=== PATIENT | male | born 1970 | race American Indian/Alaskan Native ===

== ENCOUNTER 2017-08-25 10:00 | Inpatient (IN) | payer MEDICAID ==
--- NOTE | 2017-08-25 10:50 | C.PDOC ---
History Of Present Illness 47 y/o male presents to ED requesting detox from heroin and cocaine. Patient reports last use was last night and currently denies SI/HI, hallucinations or any other physical complaint at this time. Time Seen by Provider: 08/25/17 10:18 Chief Complaint (Nursing): Substance Abuse History Per: Patient History/Exam Limitations: no limitations Onset/Duration Of Symptoms: Days Current Symptoms Are (Timing): Still Present Suicide/Self Injury Attempted (Context): None Modifying Factor(s): Cocaine, Other (heroin) Past Medical History Reviewed: Historical Data, Nursing Documentation, Vital Signs Vital Signs: Last Vital Signs Temp 98.5 F 08/25/17 10:13 Pulse 84 08/25/17 10:13 Resp 18 08/25/17 10:13 BP 131/85 08/25/17 10:13 Pulse Ox 98 08/25/17 12:51 - Medical History PMH: Asthma Surgical History: No Surg Hx Family History: States: No Known Family Hx - Social History Hx Alcohol Use: Yes Hx Substance Use: Yes Review Of Systems Constitutional: Negative for: Fever, Chills Cardiovascular: Negative for: Chest Pain Respiratory: Negative for: Shortness of Breath Gastrointestinal: Negative for: Nausea, Vomiting Skin: Negative for: Rash Psych: Negative for: Suicidal ideation, Withdrawal Physical Exam - Physical Exam Appears: Non-toxic, No Acute Distress Skin: Warm, Dry, No Rash Head: Atraumatic, Normacephalic Eye(s): bilateral: Normal Inspection Oral Mucosa: Moist Neck: Normal ROM, Supple Cardiovascular: Rhythm Regular Respiratory: Normal Breath Sounds, No Rales, No Rhonchi, No Wheezing Gastrointestinal/Abdominal: Soft, No Tenderness, No Guarding, No Rebound Extremity: Normal ROM, Capillary Refill (<2 seconds) Neurological/Psych: Oriented x3, Normal Speech, Normal Cognition ED Course And Treatment - Laboratory Results Result Diagrams: 08/25/17 11:11 08/25/17 11:11 O2 Sat by Pulse Oximetry: 98 (RA) Pulse Ox Interpretation: Normal Medical Decision Making Medical Decision Making: Pending medical clearance for detox admission The patient is medically cleared for detox admission. Disposition - Disposition Disposition: HOSPITALIZED Disposition Time: 12:52 Condition: GOOD Forms: [facility] (Macedonian) - POA Present On Arrival: None - Clinical Impression Clinical Impression: Opiate dependence - PA / FRAME RUNNER / Resident Statement / has reviewed & agrees with the documentation as recorded. - Scribe Statement The provider has reviewed the documentation as recorded by the Lindseyibkarin Ontiveros All medical record entries made by the Jing were at my direction and personally dictated by me. I have reviewed the chart and agree that the record accurately reflects my personal performance of the history, physical exam, medical decision making, and the department course for this patient. I have also personally directed, reviewed, and agree with the discharge instructions and disposition.
[2017-08-25 11:16] LABS: BASO % 0.6 % (0.0-2.0); EOS % 0.9 % (0.0-4.0); HEMOGLOBIN 13.5 g/dL (12.0-18.0); LYMPH # 1.7 K/uL (1.0-4.3); LYMPH % 70.7 % (20.0-40.0); MEAN CELL VOLUME 82.2 fL (80.0-94.0); MEAN CORPUSCULAR HGB CONC 34.1 g/dL (33.0-37.0); MEAN PLATELET VOLUME 6.9 fL (7.2-11.7); MONO # 0.4 K/uL (0.0-0.8); MONO % 18.4 % (0.0-10.0); NEUT # 0.2 K/uL (1.8-7.0); NEUT % 9.4 % (50.0-75.0); NRBC % 0.6 % (0.0-2.0); PLATELET COUNT 318 K/uL (130-400); RED CELL DISTRIBUTION WIDTH 14.8 % (11.5-14.5); WHITE BLOOD COUNT 2.4 K/uL (4.8-10.8)
[2017-08-25 11:28] LABS: URINE BILIRUBIN NEGATIVE (NEGATIVE); URINE BLOOD NEGATIVE (NEGATIVE); URINE CLARITY Hazy (Clear); URINE COLOR Amber (YELLOW); URINE GLUCOSE (UA) NORMAL (Normal); URINE LEUKOCYTE ESTERASE NEG Leu/uL (Negative); URINE PROTEIN 1+ mg/dL (NEGATIVE)
[2017-08-25 11:29] LABS: ALBUMIN 4.3 g/dL (3.5-5.0); ALT/SGPT 23 U/L (21-72); AST/SGOT 23 U/L (17-59); BLOOD UREA NITROGEN 13 mg/dL (9-20); GFR AFRICAN-AMERICAN > 60; GFR NON-AFRICAN AMERICAN > 60
[2017-08-25 11:50] LABS: EOSINOPHIL 2 % (0-4); LYMPHOCYTE 74 % (20-40); MONOCYTE 17 % (0-10); NEUTROPHIL 7 % (50-75); TOTAL CELLS COUNTED 100
[2017-08-25 11:51] LABS: PLATELET ESTIMATE NORMAL (NORMAL)
[2017-08-25 12:02] LABS: BARBITURATES, UR NEGATIVE (NEGATIVE); BENZODIAZEPINES, UR NEGATIVE (NEGATIVE)
[2017-08-25 12:18] LABS: PHENCYCLIDINE, UR NEGATIVE (NEGATIVE)
[2017-08-25 12:35] LABS: OPIATES, UR POSITIVE (NEGATIVE)
--- NOTE | 2017-08-25 13:59 | PCM.BM ---
<Katie Villanueva - Last Filed: 08/25/17 13:58> Treatment Plan Problems - Problems identified on initial assessmt potential for opiate withdrawals Date Initiated: 08/25/17 Assessment reference: NA Status: Active Treatment assets and liabiliti Patient Assests: adapts well, cooperative, motivated, ADL independent, negotiates basic needs Patient Liabilities: substance abuse - Milieu Protocol Maintain good personal hygiene: daily Encourage regular showers, daily Remind patient to perform daily oral care, daily Assist patient to perform ADL's Conduct patient checks and document Observation sheet: Q15 minutes Maintain personal safety: every shift Educate patient to report safety concerns to staff, every shift Monitor environment for contraband/sharps Medication safety: Monitor for expected outcome, potential side effects: every shift, Assess barriers to learning: every shift, Assess readiness for medication education: every shift <Jean-Paul Queen - Last Filed: 08/25/17 14:53> - Diagnosis (1) Opiate dependence Status: Acute Interventions: 08/25/17 14:53 * Assess 7x/week regarding severity of withdrawal * Educate regarding risks, benefits, side effects and alternatives of medications * Use Motivational Interviewing for abstinence * Use CBT for relapse prevention * Medication management for withdrawal symptoms * Encourage medication assisted treatment * (2) Cocaine use disorder, severe, dependence Status: Acute Interventions: 08/25/17 14:53 * * Educate regarding risks, benefits, side effects and alternatives of medications * Use Motivational Interviewing for abstinence * Use CBT for relapse prevention * Medication management for withdrawal symptoms * Encourage medication assisted treatment * <Kristy Parra - Last Filed: 08/27/17 10:59> Family Contact Family involvement: Famliy/SO not involved - Goals for Treatment Patient goals for treatment: Complete detox and attend 12-step meetings Discharge/Continuing Care - Education Needs Education Needs: Patient Medication, Patient Diagnosis/Disease Process, Patient Coping Skills, Patient Anger Management skills, Patient Placement options, Patient Community resources - Discharge Discharge Criteria: Free of agitation, Normal sleep pattern, No longer exhibiting s/s of withdrawal, Reduction of target symptoms Discharge to:: Home - Treatment Team Participation Patient/Family/SO Statement: 08/27/17 10:59 "I don't wanna go to treatment after this..." Discussed with Family/SO: No Was Patient/Family/SO present at Treatment Team Meeting: Yes
[2017-08-25] MEDS ORDERED: Aluminum Hydroxide/Magnesium Hydroxide Susp (30 mL) PO PRN (14:12)
[2017-08-25] MEDS ORDERED: Albuterol HFA 90 mcg/actuation (8 g) INH PRN (14:13)
--- NOTE | 2017-08-25 14:45 | PCM.PSYCH ---
Initial Psychiatric Evaluation - Initial Psychiatric Evaluation Type of Admission: Voluntary Legal Status: Capacity Chief Complaint (in patient's own words): "I need detox' History of Present Illness and Precipitating Events: The patient is seen, chart reviewed and case discussed. This is a 47-year-old -[place] male, single with several children but who in 1990. He lives with his adult daughter and he is unemployed. The patient is here for opiate detox; using 10 bags intranasal heroin and he is also given a prescription for methadone 10 mg, 60 tablets a month. However, he states when he doesn't take heroin, he uses methadone tablets 3 or 4 a day. He also smokes 2 g of crack cocaine, 1 pack per day cigarettes. Finally, he admits to using Xanax occasionally. No withdrawal symptoms. He denies alcohol and other drugs. He feels depressed and anhedonic but denies suicidal ideation. Past psych history: He was depressed and admitted to psychiatry in 2004. He denies suicide attempts. Family psych history: Father was an "alcoholic" Medical history: Asthma, disc hernia, recent history of cellulitis for which she got treatment at [facility]. He also has some neutropenia and lymphocytosis and he says he was evaluated but they couldn't find the reason. Current Medications: Active Medications Generic Name Dose Route Start Last Admin Trade Name Clintq PRN Reason Stop Dose Admin Acetaminophen 650 mg 08/25/17 14:12 Tylenol 325mg Tab PO Q6 PRN Pain, moderate (4-7) Al Hydrox/Mg Hydrox/Simethicone 30 ml 08/25/17 14:12 Maalox 30 Ml PO TID PRN Indigestion / Heartburn Albuterol 1 puff 08/25/17 14:13 Ventolin Hfa 90 Mcg/Actuation (8 G) INH RQ4 PRN SOB Clonidine HCl 0.1 mg 08/25/17 14:12 Catapres PO Q8 PRN COWS Score More or Equal to 5 Hydroxyzine HCl 25 mg 08/25/17 14:12 Atarax PO Q4H PRN Anxiety Loperamide HCl 2 mg 08/25/17 14:12 Imodium PO Q8 PRN Diarrhea Ondansetron HCl 4 mg 08/25/17 14:12 Zofran Tab PO Q8 PRN Nausea/Vomiting Trazodone HCl 100 mg 08/25/17 14:12 Desyrel PO HS PRN Insomnia Past Psychiatric History - Past Psychiatric History Previous Treatment History: Inpatient Pertinent Medical Hx (Current Medical&Sleep Prob, Allergies): Allergies Allergy/AdvReac Type Severity Reaction Status Date / Time No Known Allergies Allergy Verified 08/25/17 10:15 Albuterol Sulfate [Ventolin Hfa] 2 puff IH PRN PRN 08/25/17 Review of Systems - Neurological Neurological: UNREMARKABLE - Psychiatric Psychiatric: Abnormal Sleep Pattern, Anhedonia, Anxiety, Depression, Difficulty Concentrating. absent: Hallucinations, Homicidal Ideation, Paranoia, Suicidal Ideation Mental Status Examination - Personal Presentation Personal Presentation: Looks older than stated age - Affect Affect: Constricted - Motor Activity Motor Activity: Calm - Reliability in Providing Information Reliability in Providing Information: Good - Speech Speech: Organized - Mood Mood: Depressed, Anxious - Formal Thought Process Formal Thought Process: No Impairment - Cognitive Functions Orientation: Person, Situation Sensorium: Alert Attention/Concentration: Attentive Estimate of Intelligence: Average Judgement: Intact, as evidence by: Insight regarding need for hospitalization Memory: Recent intact, as evidence by: Ability to recall events of the day, Remote intact, as evidenced by: Abilit to recall sig. life events - Risk Risk: Withdrawal, Diminished functioning - Strength & Assets Inventory Strength & Assets Inventory: Cooperative - Limitations Limitations: Living alone, Other DSM 5 DX - DSM 5 DSM 5 Diagnosis: Opioid withdrawal Opioid use d/o- severe Cocaine use d/o- severe Tobacco use d/o- severe Major Depressive d/o- recurrent, moderate Asthma Disc Hernia recent cellulitis - Recommended/Plan of Treatment Treatment Recommendations and Plan of Treatment: Taper with Gabapentin for augmentation lexapro for depression As needed medications All risks, benefits and alternatives of the meds discussed, and the pt agreed and understood. Attend groups and activities Supportive therapy and psychoeducation VT for abstinence CBT for relapse prevention Encourage MAT Refer to rehab or IOP, and self-help groups Smoking cessation with VT Nicotine patch Neutropenia: RPR, HiV and hep C tests TSH test CXR 34 min Projected ELOS: 5 days Prognosis: good w treatment - Smoking Cessation Smoking Cessation Initiated: Yes
--- NOTE | 2017-08-25 15:44 | RAD ---
HISTORY: Substance abuse, lymphocytosis COMPARISON: No prior. TECHNIQUE: Chest PA and lateral FINDINGS: LUNGS: No active pulmonary disease. PLEURA: No significant pleural effusion identified. No pneumothorax apparent. CARDIOVASCULAR: Normal. OSSEOUS STRUCTURES: No significant abnormalities. VISUALIZED UPPER ABDOMEN: Normal. OTHER FINDINGS: None. IMPRESSION: No active disease.
[2017-08-25 16:46] VITALS: RESP 18
[2017-08-25 18:02] LABS: HEPATITIS C ANTIBODY NEGATIVE (NEGATIVE)
--- NOTE | 2017-08-26 13:31 | PCM.PYCHPN ---
Psychiatric Progress Note - Psychiatric Progress Note Patient seen today, length of contact: 16 min Patient Chief Complaint: "I have pain" Problems Identified/Issues Discussed: The pt is seen, chart reviewed, case discussed with staff. The pt is compliant with medications and reports no side-effects. Symptoms are improving but needs more time to stabilize. After care discussed, support and psychoeducation given. He has lesions in foot, podiatry called Medication Change: Yes (detox changes daily) Medical Record Reviewed: Yes Mental Status Examination - Cognitive Function Orientation: Person, Place, Situation, Time Memory: Intact Attention: WNL Concentration: Poor Association: WNL Fund of Knowledge: WNL - Mood Mood: Depressed, Anxious - Affect Affect: Constricted - Speech Speech: Appropriate - Formal Thought Process Formal Thought Process: No Impairment - Suicidal Ideation Suicidal Ideation: No - Homicidal Ideation Homicidal Ideation: No Goal/Treatment Plan - Goal/Treatment Plan Need for Continued Stay: Discharge may exacerbated symptoms, Severe functional impairment Progress Toward Problem(s) and Goals/Treatment Plan: Taper with Gabapentin for augmentation lexapro for depression As needed medications All risks, benefits and alternatives of the meds discussed, and the pt agreed and understood. Attend groups and activities Supportive therapy and psychoeducation MD for abstinence CBT for relapse prevention Encourage MAT Refer to rehab or IOP, and self-help groups Smoking cessation with MD Nicotine patch Neutropenia: RPR, HiV and hep C tests - all negative TSH test - normal CXR - normal
--- NOTE | 2017-08-27 10:56 | PCM.PYCHPN ---
Psychiatric Progress Note - Psychiatric Progress Note Patient seen today, length of contact: 16 min Patient Chief Complaint: "I have pain" Problems Identified/Issues Discussed: The pt is seen, chart reviewed, case discussed with staff. Support and psychoeducation given, CBT and NC used briefly No new symptoms reported, improving slowly and needs more time No SEs from medications, risks discussed. After care discussed Medication Change: Yes (detox changes daily) Medical Record Reviewed: Yes Mental Status Examination - Cognitive Function Orientation: Person, Place, Situation, Time Memory: Intact Attention: WNL Concentration: Poor Association: WNL Fund of Knowledge: WNL - Mood Mood: Depressed, Anxious - Affect Affect: Constricted - Speech Speech: Appropriate - Formal Thought Process Formal Thought Process: No Impairment - Suicidal Ideation Suicidal Ideation: No - Homicidal Ideation Homicidal Ideation: No Goal/Treatment Plan - Goal/Treatment Plan Need for Continued Stay: Discharge may exacerbated symptoms, Severe functional impairment Progress Toward Problem(s) and Goals/Treatment Plan: Taper with Gabapentin for augmentation lexapro for depression As needed medications All risks, benefits and alternatives of the meds discussed, and the pt agreed and understood. Attend groups and activities Supportive therapy and psychoeducation NC for abstinence CBT for relapse prevention Encourage MAT Refer to rehab or IOP, and self-help groups Smoking cessation with NC Nicotine patch Neutropenia: RPR, HiV and hep C tests - all negative TSH test - normal CXR - normal
[2017-08-27 11:11] VITALS: BP 113/68; PULSE 71; TEMP 98.1; O2SAT 100
--- NOTE | 2017-08-27 13:00 | CP.PCM.CON ---
History of Present Illness - History of Present Illness History of Present Illness: Podiatry Consult note for dr. Salmeron 47 yo male patient with PMHx of Asthma and Substance Abuse was seen at bedside this morning after request for podiatry consultation. Patient presents with painful bilateral feet at the level of 1st MTPJ right more than Left. Patient states that he noticed swelling first roughly a week ago followed by sharp pain. Patient denies of any trauma. Patient denies of history of gout in the past, and states this is first time having such pain to his feet. Patient denies of trying any medication for the pain. Patient denies of any N/V/F/C or SOB today Review of Systems - Constitutional Constitutional: As Per HPI Past Patient History - Past Social History Smoking Status: Heavy Smoker > 10 Cigarettes Daily - CARDIAC Hx Cardiac Disorders: No Hx Hypertension: No - PULMONARY Hx Asthma: Yes - NEUROLOGICAL HX Cerebrovascular Accident: No - HEMATOLOGICAL/ONCOLOGICAL Hx Cancer: No Hx Human Immunodeficiency Virus (HIV): No - INTEGUMENTARY Hx Dermatological Problems: Yes Hx Cellulitis: Yes (BLE) - MUSCULOSKELETAL/RHEUMATOLOGICAL Hx Falls: Yes (5 days ago) - GENITOURINARY/GYNECOLOGICAL Hx Sexually Transmitted Disorders: No - PSYCHIATRIC Hx Substance Use: Yes - SURGICAL HISTORY Hx Surgeries: No - ANESTHESIA Hx Anesthesia: No Hx Anesthesia Reactions: No Meds Allergies/Adverse Reactions: Allergies Allergy/AdvReac Type Severity Reaction Status Date / Time No Known Allergies Allergy Verified 08/25/17 10:15 - Medications Medications: Current Medications Acetaminophen (Tylenol 325mg Tab) 650 mg PO Q6 PRN PRN Reason: Pain, moderate (4-7) Al Hydrox/Mg Hydrox/Simethicone (Maalox 30 Ml) 30 ml PO TID PRN PRN Reason: Indigestion / Heartburn Albuterol (Ventolin Hfa 90 Mcg/Actuation (8 G)) 1 puff INH RQ4 PRN PRN Reason: SOB Clonidine HCl (Catapres) 0.1 mg PO Q8 PRN PRN Reason: COWS Score More or Equal to 5 Hydroxyzine HCl (Atarax) 25 mg PO Q4H PRN PRN Reason: Anxiety Last Admin: 08/26/17 21:40 Dose: 25 mg Loperamide HCl (Imodium) 2 mg PO Q8 PRN PRN Reason: Diarrhea Methadone HCl (Methadone) 20 mg PO Q24H BENIGNO PRN Reason: Taper Stop: 09/01/17 09:59 Last Admin: 08/27/17 10:33 Dose: 20 mg Nicotine (Nicoderm Cq) 1 patch TD DAILY BENIGNO Last Admin: 08/27/17 10:34 Dose: Not Given Ondansetron HCl (Zofran Tab) 4 mg PO Q8 PRN PRN Reason: Nausea/Vomiting Trazodone HCl (Desyrel) 100 mg PO HS PRN PRN Reason: Insomnia Last Admin: 08/26/17 21:40 Dose: 100 mg Physical Exam - Constitutional Appears: Well, Non-toxic, No Acute Distress - Extremities Exam Additional comments: Bilateral lower extremities exam DERM: No open wound noted. No drainage noted. No mal-odor noted. No interdigital maceration noted. No sign of acute infection noted VASC: Skin warm to touch at the level of 1st MTPJ. palpable DP noted 2/4, non- palpable PT noted bilaterally. BUSINESS PARTNER less than 3 seconds noted to all digits ORTHO: Pain on palpation to joints distal to ankle, especially 1st MTPJ bilaterally right more than left. Decreased ROM to joints distal to ankle NEURO: Gross sensation intact - Neurological Exam Neurological exam: Alert, Oriented x3 Results - Vital Signs Recent Vital Signs: Last Vital Signs Temp 98.1 F 08/27/17 11:09 Pulse 71 08/27/17 11:09 Resp 18 08/27/17 11:09 BP 113/68 08/27/17 11:09 Pulse Ox 100 08/27/17 11:09 - Labs Result Diagrams: 08/25/17 11:11 08/25/17 11:11 Assessment & Plan - Assessment and Plan (Free Text) Assessment: 47 yo male patient presents with painful bilateral feet; gout vs stress fracture Plan: Patient was seen, evaluated by bedside this AM labs and vitals reviewed discussed in detail with Dr. Salmeron Xray of bilateral feet ordered Uric Acid level ordered Podiatry will continue to follow in-house
--- NOTE | 2017-08-27 13:18 | PCM.PYCHDC ---
Mental Status Examination - Mental Status Examination Orientation: Person, Place, Situation, Time Memory: Intact Mood: Anxious Affect: Constricted Speech: Appropriate Attention: WNL Concentration: WNL Association: WNL Fund of Knowledge: WNL Formal Thought Process: No Impairment Suicidal Ideation: No Current Homicidal Ideation?: No Discharge Summary - Discharge Note Reason for Hospitalization: opioid detox Consultations:: List each consultation separately and include: 1. Reason for request. 2. Findings. 3. Follow-up Summary of Hospital Course include:: 1. Description of specific treatment plan utilized for patients during their course of treatmen. 2. Summarize the time- course for resolution of acute symptoms and/or regressed behaviors. 3. Describe issues identified and worked on during hospitalization. 4. Describe medication utilized. 5. Describe medical problems identified and treated. 6. Reassessment of suicide risk Summary of Hospital Course: The patient is seen, chart reviewed and case discussed. On admission: This is a 47-year-old -[place] male, single with several children but who in 1990. He lives with his adult daughter and he is unemployed. The patient is here for opiate detox; using 10 bags intranasal heroin and he is also given a prescription for methadone 10 mg, 60 tablets a month. However, he states when he doesn't take heroin, he uses methadone tablets 3 or 4 a day. He also smokes 2 g of crack cocaine, 1 pack per day cigarettes. Finally, he admits to using Xanax occasionally. No withdrawal symptoms. He denies alcohol and other drugs. He feels depressed and anhedonic but denies suicidal ideation. Past psych history: He was depressed and admitted to psychiatry in 2004. He denies suicide attempts. Family psych history: Father was an "alcoholic" Medical history: Asthma, disc hernia, recent history of cellulitis for which she got treatment at [facility]. He also has some neutropenia and lymphocytosis and he says he was evaluated but they couldn't find the reason. Hospital course: The pt was admitted and started on treatment with psychotherapy, support, psychoeducation and medications. OK used. All the risks and benefits of medications are discussed and the patient understood and agreed. The pt improved slightly with the treatments provided. But he was not participating on after care planning and did not attend groups. Today, with a vague excuse he decided to sign out AMA. Risks of AMA leave, incl. OD and , discussed. Yet he still left - Diagnosis (1) Opiate dependence Status: Acute (2) Cocaine use disorder, severe, dependence Status: Acute - Final Diagnosis (DSM 5) Condition upon Discharge: IMPROVED Disposition: AGAINST MEDICAL ADVICE Follow-up Treatment Plan: Use relapse prevention skills Return to ER or call 911 if suicidal, homicidal or symptoms relapse. Stay away from stress, alcohol and drugs. See primary doctor regularly and get labs. - Smoking Cessation Smoking Cessation Medication prescribed: No
== END 2017-08-27 13:25 | disposition left against medical advice (07) | DRG 743 ==
LOC: C.ER 10:00 → C.7D 12:55
PROVIDERS: ADMIT Psychiatry & Neurology Psychiatry; ATTEND Psychiatry & Neurology Psychiatry
PROC: HZ2ZZZZ Detoxification Services for Substance Abuse Treatment (ICD-10-PCS; principal; 2017-08-25)
PROC: HZ59ZZZ Individual Psychotherapy for Substance Abuse Treatment, Supportive (ICD-10-PCS; 2017-08-25)
PROC: HZ46ZZZ Group Counseling for Substance Abuse Treatment, Psychoeducation (ICD-10-PCS; 2017-08-25)
PROC: GZ3ZZZZ Medication Management (ICD-10-PCS; 2017-08-25)
PROC: GZHZZZZ Group Psychotherapy (ICD-10-PCS; 2017-08-25)
PROC: GZ56ZZZ Individual Psychotherapy, Supportive (ICD-10-PCS; 2017-08-25)
PROC: HZ90ZZZ Pharmacotherapy for Substance Abuse Treatment, Nicotine Replacement (ICD-10-PCS; 2017-08-25)
DX: F11.23 Opioid dependence with withdrawal (principal); F14.20 Cocaine dependence, uncomplicated; F32.9 Major depressive disorder, single episode, unspecified; F17.210 Nicotine dependence, cigarettes, uncomplicated; J45.909 Unspecified asthma, uncomplicated; D70.9 Neutropenia, unspecified; Z81.1 Family history of alcohol abuse and dependence

== ENCOUNTER 2018-03-30 21:15 | Inpatient (IN) | payer MEDICAID ==
[2018-03-30 21:15] VITALS: BMI 26.9
[2018-03-30 22:08] LABS: EOS # 0.1 K/uL (0.0-0.7); HEMOGLOBIN 14.5 g/dL (12.0-18.0); NEUT # 0.4 K/uL (1.8-7.0); NRBC % 0.2 % (0.0-2.0); RED CELL DISTRIBUTION WIDTH 13.2 % (11.5-14.5)
[2018-03-30 22:22] LABS: ALB/GLOB RATIO 1.2 (1.0-2.1); ALBUMIN 4.5 g/dL (3.5-5.0); ALT/SGPT 11 U/L (21-72); AST/SGOT 16 U/L (17-59); BLOOD UREA NITROGEN 10 mg/dL (9-20); CALCIUM 8.7 mg/dl (8.6-10.4); GFR NON-AFRICAN AMERICAN > 60
[2018-03-30 22:24] LABS: URINE BILIRUBIN NEGATIVE (NEGATIVE); URINE BLOOD NEGATIVE (NEGATIVE); URINE CLARITY Clear (Clear); URINE COLOR Yellow (YELLOW); URINE GLUCOSE (UA) NORMAL (Normal); URINE LEUKOCYTE ESTERASE NEG Leu/uL (Negative); URINE PROTEIN NEGATIVE (NEGATIVE)
[2018-03-30 22:26] LABS: BASO % 0.9 % (0.0-2.0); EOS % 6.9 % (0.0-4.0); MEAN CORPUSCULAR HEMOGLOBIN 29.2 pg (27.0-31.0); MEAN CORPUSCULAR HGB CONC 33.7 g/dL (33.0-37.0); MEAN PLATELET VOLUME 7.1 fL (7.2-11.7); MONO # 0.5 K/uL (0.0-0.8); NEUT % 21.2 % (50.0-75.0); PLATELET COUNT 235 K/uL (130-400); RBC 4.98 Mil/uL (4.40-5.90); WHITE BLOOD COUNT 2.1 K/uL (4.8-10.8)
[2018-03-30 22:27] LABS: MEAN CELL VOLUME 86.4 fL (80.0-94.0)
[2018-03-30 22:38] LABS: BARBITURATES, UR NEGATIVE (NEGATIVE); BENZODIAZEPINES, UR NEGATIVE (NEGATIVE); PHENCYCLIDINE, UR NEGATIVE (NEGATIVE)
[2018-03-30 22:47] LABS: OPIATES, UR POSITIVE (NEGATIVE)
[2018-03-30 23:16] LABS: BANDS 1 % (0-2); EOSINOPHIL 3 % (0-4); LYMPHOCYTE 58 % (20-40); MICROCYTOSIS SLIGHT; MONOCYTE 19 % (0-10); NEUTROPHIL 19 % (50-75); PLATELET ESTIMATE NORMAL (NORMAL); TOTAL CELLS COUNTED 100
--- NOTE | 2018-03-30 23:23 | C.PDOC ---
History Of Present Illness 47 year old male presents prescreened by crisis for detox. Patient voices no complaints at this time. Time Seen by Provider: 03/30/18 21:52 Chief Complaint (Nursing): Substance Abuse History Per: Patient History/Exam Limitations: no limitations Onset/Duration Of Symptoms: Days Current Symptoms Are (Timing): Still Present Suicide/Self Injury Attempted (Context): None Associated Symptoms: denies: Depression, Suicidal Thoughts Involuntary Hold By: None Recent travel outside of the [place]: No Past Medical History Reviewed: Historical Data, Nursing Documentation, Vital Signs Vital Signs: Last Vital Signs Temp 98.2 F 03/30/18 21:41 Pulse 86 03/30/18 21:41 Resp 16 03/30/18 21:41 BP 148/77 03/30/18 21:41 Pulse Ox 99 03/30/18 21:41 - Medical History PMH: Anxiety, Asthma, Back Problems, Depression Denies: Diabetes, Hepatitis, HIV, HTN, Chronic Kidney Disease, Seizures, Sexually Transmitted Disease - [facility] Procedures DETOXIFICATION SERVICES FOR SUBSTANCE ABUSE TREATMENT (08/25/17) GROUP LICENSED APPRAISER FOR SUBSTANCE ABUSE TREATMENT, PSYCHOEDUCATION (08/25/17) GROUP PSYCHOTHERAPY (08/25/17) INDIV PSYCHOTHERAPY FOR SUBSTANCE ABUSE TREATMENT, SUPPORT (08/25/17) INDIVIDUAL PSYCHOTHERAPY, SUPPORTIVE (08/25/17) MEDICATION MANAGEMENT (08/25/17) PHARMACOTHERAPY FOR SUBSTANCE ABUSE, NICOTINE REPLACE (08/25/17) Family History: States: Unknown Family Hx - Social History Hx Alcohol Use: Yes Hx Substance Use: Yes Review Of Systems Except As Marked, All Systems Reviewed And Found Negative. Physical Exam - Physical Exam Appears: Non-toxic, No Acute Distress Skin: Normal Color, Warm, Dry Head: Atraumatic, Normacephalic Eye(s): bilateral: Normal Inspection Oral Mucosa: Moist Neck: Normal, Supple Chest: Symmetrical, No Tenderness Cardiovascular: Rhythm Regular Respiratory: Normal Breath Sounds, No Rales, No Rhonchi, No Wheezing Gastrointestinal/Abdominal: Soft, No Tenderness Extremity: Normal ROM (x4) Neurological/Psych: Oriented x3, Normal Speech ED Course And Treatment - Laboratory Results Result Diagrams: 03/30/18 22:01 03/30/18 22:01 Lab Results: Total Bilirubin 0.5 mg/dL (0.2-1.3) 03/30/18 22:01 AST 16 U/L (17-59) L D 03/30/18 22:01 ALT 11 U/L (21-72) L D 03/30/18 22:01 Alkaline Phosphatase 96 U/L (38-126) 03/30/18 22:01 Total Protein 8.2 g/dL (6.3-8.3) 03/30/18 22:01 Albumin 4.5 g/dL (3.5-5.0) 03/30/18 22:01 Globulin 3.7 gm/dL (2.2-3.9) 03/30/18 22:01 Albumin/Globulin Ratio 1.2 (1.0-2.1) 03/30/18 22:01 Urine Color Yellow (YELLOW) 03/30/18 22:12 Urine Clarity Clear (Clear) 03/30/18 22:12 Urine pH 6.0 (5.0-8.0) 03/30/18 22:12 Ur Specific [place] 1.019 (1.003-1.030) 03/30/18 22:12 Urine Protein Negative mg/dL (NEGATIVE) 03/30/18 22:12 Urine Glucose (UA) Normal mg/dL (Normal) 03/30/18 22:12 Urine Ketones Negative mg/dL (NEGATIVE) 03/30/18 22:12 Urine Blood Negative (NEGATIVE) 03/30/18 22:12 Urine Nitrate Negative (NEGATIVE) 03/30/18 22:12 Urine Bilirubin Negative (NEGATIVE) 03/30/18 22:12 Urine Urobilinogen 4.0 mg/dL (0.2-1.0) 03/30/18 22:12 Ur Leukocyte Esterase Neg Noy/uL (Negative) 03/30/18 22:12 Urine WBC (Auto) < 1 /hpf (0-5) 03/30/18 22:12 Urine RBC (Auto) 1 /hpf (0-3) 03/30/18 22:12 O2 Sat by Pulse Oximetry: 99 (room air) Pulse Ox Interpretation: Normal Medical Decision Making Medical Decision Making: Pending medical clearance for detox admission. 0100 - case s/o to Dr. Burkett pending crisis disposition. Disposition - Disposition Disposition: HOSPITALIZED Disposition Time: 02:00 Condition: GOOD - Clinical Impression Clinical Impression: Drug abuse - Scribe Statement The provider has reviewed the documentation as recorded by the Scribe Uvaldo Garner All medical record entries made by the Lindseyibkarin were at my direction and personally dictated by me. I have reviewed the chart and agree that the record accurately reflects my personal performance of the history, physical exam, medical decision making, and the department course for this patient. I have also personally directed, reviewed, and agree with the discharge instructions and disposition.
--- NOTE | 2018-03-31 06:50 | PCM.BM ---
<Flip Combs - Last Filed: 03/31/18 06:49> Treatment Plan Problems - Problems identified on initial assessmt Denial Date Initiated: 03/31/18 Time Initiated: 06:49 Assessment reference: NA Status: Active Defensive Coping Date Initiated: 03/31/18 Time Initiated: 06:50 Assessment reference: NA Status: Active Low Motivation to Change Date Initiated: 03/31/18 Time Initiated: 06:50 Assessment reference: NA Status: Active Treatment assets and liabiliti Patient Assests: adapts well, cooperative, motivated, ADL independent, negotiates basic needs, cognitively intact Patient Liabilities: substance abuse - Milieu Protocol Maintain good personal hygiene: daily Encourage regular showers, daily Remind patient to perform daily oral care, daily Assist patient to perform ADL's Maintain personal safety: every shift Educate patient to report safety concerns to staff, every shift Monitor environment for contraband/sharps Medication safety: Monitor for expected outcome, potential side effects: every shift, Assess barriers to learning: every shift, Assess readiness for medication education: every shift <Jean-Paul Queen - Last Filed: 03/31/18 14:46> - Diagnosis (1) Cocaine use disorder, severe, dependence Status: Acute Interventions: 03/31/18 14:47 * Assess 7x/week regarding severity of withdrawal * Educate regarding risks, benefits, side effects and alternatives of medications * Use Motivational Interviewing for abstinence * Use CBT for relapse prevention * Medication management for withdrawal symptoms * Encourage medication assisted treatment * (2) Opiate dependence Status: Acute Interventions: 03/31/18 14:47 * Assess 7x/week regarding severity of withdrawal * Educate regarding risks, benefits, side effects and alternatives of medications * Use Motivational Interviewing for abstinence * Use CBT for relapse prevention * Medication management for withdrawal symptoms * Encourage medication assisted treatment * <Kristy Parra - Last Filed: 04/02/18 14:29> Family Contact Family involvement: Famliy/SO not involved Family contact name: girlfriend Family contacted how many times per week?: 1 - Goals for Treatment Patient goals for treatment: Complete detox and transition to an 12-step meetings.
--- NOTE | 2018-03-31 11:26 | CP.PCM.CON ---
<Juni Dickson - Last Filed: 03/31/18 18:48> History of Present Illness - History of Present Illness History of Present Illness: PGY2 Consult Note for Dr. Qing Funez Reason for Consult: RLL ulcer Patient is a 47 year old male with a past medical history of asthma, chronic back pain, heroin abuse, cocaine abuse and venous insufficiency with ulcer was admitted to the detox unit on 03/30/18. He was recently admitted to [facility] on 02/18/18 for cellulitis secondary to a venous ulcer on the superior, medial aspect of his right ankle. He was discharged on 02/19/18 with a 10 day course of doxycycline with instructions to follow up with Podiatry. Patient reports taking the complete course of his antibiotic but never followed up with podiatry. He reports great improvement in the ulcer which has since scabbed over. It still drains but is no longer painful to him when he is resti ng. The ulcer is still painful to touch. He has had lower extremity edema for over the past year and denies any recent changes or increases in swelling of late. Denies fevers, chills, nausea, vomiting, diarrhea, constipation, chest pain, shortness of breath, numbness or tingling. PMD: Dr. Overton PMH: aasthma, chronic back pain, heroin abuse, cocaine abuse and venous insufficiency PSH: Denies Allergies: NKDA Social History: Smokes 1 packs per day x 30yrs, Uses Cocaine and heroin daily, occasional alcohol use Family History: Dad - COPD, Mom - from breast and ovarian cancer Review of Systems - Review of Systems All systems: reviewed and no additional remarkable complaints except (as per HPI) Past Patient History - Infectious Disease Hx of Infectious Diseases: None - Past Medical History & Family History Past Medical History?: Yes - Past Social History Smoking Status: Light Smoker < 10 Cigarettes Daily - CARDIAC Hx Hypertension: No - PULMONARY Hx Asthma: Yes - NEUROLOGICAL Hx Seizures: No - HEENT Hx HEENT Problems: No - RENAL Hx Chronic Kidney Disease: No - ENDOCRINE/METABOLIC Hx Endocrine Disorders: No - HEMATOLOGICAL/ONCOLOGICAL Hx Human Immunodeficiency Virus (HIV): No - INTEGUMENTARY Hx Dermatological Problems: Yes - MUSCULOSKELETAL/RHEUMATOLOGICAL Hx Musculoskeletal Disorders: Yes Hx Falls: Yes - GASTROINTESTINAL Hx Gastrointestinal Disorders: No - GENITOURINARY/GYNECOLOGICAL Hx Sexually Transmitted Disorders: No - PSYCHIATRIC Hx Anxiety: Yes Hx Depression: Yes Hx Substance Use: Yes - SURGICAL HISTORY Hx Surgeries: No - ANESTHESIA Hx Anesthesia: No Hx Anesthesia Reactions: No Meds Allergies/Adverse Reactions: Allergies Allergy/AdvReac Type Severity Reaction Status Date / Time No Known Allergies Allergy Verified 03/30/18 21:44 - Medications Medications: Current Medications Clonidine HCl (Catapres) 0.1 mg PO Q6 PRN Hydroxyzine HCl (Atarax) 25 mg PO Q6 PRN Ibuprofen (Motrin Tab) 600 mg PO Q6 PRN Methadone HCl (Methadone) 20 mg PO Q24H BENIGNO; Taper Stop: 04/04/18 09:59 Last Admin: 03/31/18 10:39 Dose: 20 mg Mirtazapine (Remeron) 15 mg PO HS BENIGNO Physical Exam - Constitutional Appears: Non-toxic, No Acute Distress - Head Exam Head Exam: ATRAUMATIC, NORMOCEPHALIC - Eye Exam Eye Exam: Normal appearance. absent: Scleral icterus - ENT Exam ENT Exam: Mucous Membranes Moist - Neck Exam Neck exam: Positive for: Normal Inspection. Negative for: Lymphadenopathy - Respiratory Exam Respiratory Exam: NORMAL BREATHING PATTERN. absent: Accessory Muscle Use, Rales, Rhonchi, Wheezes, Respiratory Distress - Cardiovascular Exam Cardiovascular Exam: REGULAR RHYTHM, +S1, +S2 - GI/Abdominal Exam GI & Abdominal Exam: Soft. absent: Distended, Rebound, Rigid, Tenderness - Extremities Exam Extremities exam: Positive for: pedal edema. Negative for: calf tenderness Additional comments: dusky appearance to lower extremities b/l (chronic venous insuff.), 1 + pitting edema b/l RLE - venous ulcer appox 4cm x 3.5cm with eschar. opening located at the 6 o'clock position draining, foul smelling, purulent fluid. No surrounding erythema. - Neurological Exam Neurological exam: Alert, Oriented x3 - Psychiatric Exam Psychiatric exam: Normal Affect, Normal Mood - Skin Skin Exam: Dry, Warm Additional comments: chronic venous stasis skin changes of LE b/l Results - Vital Signs Recent Vital Signs: Last Vital Signs Temp 97.7 F 03/31/18 09:30 Pulse 67 03/31/18 09:30 Resp 20 03/31/18 09:30 BP 122/82 03/31/18 09:30 Pulse Ox 100 03/31/18 09:30 - Labs Result Diagrams: 03/30/18 22:01 03/30/18 22:01 Labs: Laboratory Results - last 24 hr 03/30/18 03/30/18 03/30/18 22:01 22:01 22:12 WBC 2.1 L RBC 4.98 Hgb 14.5 Hct 43.1 MCV 86.4 D MCH 29.2 MCHC 33.7 RDW 13.2 Plt Count 235 MPV 7.1 L Neut % (Auto) 21.2 L Lymph % (Auto) 48.0 H [place] % (Auto) 23.0 H Eos % (Auto) 6.9 H Baso % (Auto) 0.9 Neut # (Auto) 0.4 L Lymph # (Auto) 1.0 [place] # (Auto) 0.5 Eos # (Auto) 0.1 Baso # (Auto) 0.0 Neutrophils % (Manual) 19 L Band Neutrophils % 1 Lymphocytes % (Manual) 58 H Monocytes % (Manual) 19 H Eosinophils % (Manual) 3 Platelet Estimate Normal Microcytosis (manual) Slight Sodium 138 Potassium 4.0 Chloride 102 Carbon Dioxide 26 Anion Gap 14 BUN 10 Creatinine 0.9 Est GFR ( Amer) > 60 Est GFR (Non-Af Amer) > 60 Random Glucose 90 D Calcium 8.7 Phosphorus 3.6 Magnesium 2.0 Total Bilirubin 0.5 AST 16 L D ALT 11 L D Alkaline Phosphatase 96 Total Protein 8.2 Albumin 4.5 Globulin 3.7 Albumin/Globulin Ratio 1.2 Urine Color Yellow Urine Clarity Clear Urine pH 6.0 Ur Specific [place] 1.019 Urine Protein Negative Urine Glucose (UA) Normal Urine Ketones Negative Urine Blood Negative Urine Nitrate Negative Urine Bilirubin Negative Urine Urobilinogen 4.0 Ur Leukocyte Esterase Neg Urine WBC (Auto) < 1 Urine RBC (Auto) 1 Urine Opiates Screen Urine Methadone Screen Ur Barbiturates Screen Ur Phencyclidine Scrn Ur Amphetamines Screen U Benzodiazepines Scrn U Oth Cocaine Metabols U Cannabinoids Screen Alcohol, Quantitative 22 H 03/30/18 22:12 WBC RBC Hgb Hct MCV MCH MCHC RDW Plt Count MPV Neut % (Auto) Lymph % (Auto) [place] % (Auto) Eos % (Auto) Baso % (Auto) Neut # (Auto) Lymph # (Auto) [place] # (Auto) Eos # (Auto) Baso # (Auto) Neutrophils % (Manual) Band Neutrophils % Lymphocytes % (Manual) Monocytes % (Manual) Eosinophils % (Manual) Platelet Estimate Microcytosis (manual) Sodium Potassium Chloride Carbon Dioxide Anion Gap BUN Creatinine Est GFR ( Amer) Est GFR (Non-Af Amer) Random Glucose Calcium Phosphorus Magnesium Total Bilirubin AST ALT Alkaline Phosphatase Total Protein Albumin Globulin Albumin/Globulin Ratio Urine Color Urine Clarity Urine pH Ur Specific [place] Urine Protein Urine Glucose (UA) Urine Ketones Urine Blood Urine Nitrate Urine Bilirubin Urine Urobilinogen Ur Leukocyte Esterase Urine WBC (Auto) Urine RBC (Auto) Urine Opiates Screen Positive H Urine Methadone Screen Negative Ur Barbiturates Screen Negative Ur Phencyclidine Scrn Negative Ur Amphetamines Screen Negative U Benzodiazepines Scrn Negative U Oth Cocaine Metabols Positive H U Cannabinoids Screen Negative Alcohol, Quantitative Assessment & Plan - Assessment and Plan (Free Text) Plan: RLE Chronic Venous Ulcer 2/2 chronic venous insufficiency Podiatry consulted, Dr. Salmeron - help appreciated * f/u recs * unna boot? if not, will order HELLEN stockings Wound care consulted Tib/Fib xray 03/31/18: Unremarkable Studies from recent admission at [facility] on 02/18/18: * Previous wound culture 02/18/18: Pseudomonas Aeruginosa and Beta Hemolytic Strep Group B * Previous doppler US 02/18/18: no DVT Medications: * Doxycycline 100mg PO q12h (8am and 8pm) - (Started on 03/31/18) * Lactobacillus Acidophilus 1 cap PO BID (10am and 6pm) * Silvasorb Antimicrobial 1 applic TOP daily Heroin/Cocain Abuse As per primary team Medications * Clonidine 0.1mg PO q6h prn * Hydroxyzine HCl 25mg PO q6h prn * Ibuprofen 600mg PO q6h prn * Methadone 20mg PO q24h * Mirtazapine 15mg PO HS Case discussed with Dr. Evan Alfredo Yessi PGY2 <Evan Funez - Last Filed: 03/31/18 19:35> Meds - Medications Medications: Current Medications Clonidine HCl (Catapres) 0.1 mg PO Q6 PRN PRN Reason: WITHDRAWAL SYMPTOMS Doxycycline Hyclate (Doryx) 100 mg PO Q12H BENIGNO; Protocol Hydroxyzine HCl (Atarax) 25 mg PO Q6 PRN PRN Reason: Anxiety Ibuprofen (Motrin Tab) 600 mg PO Q6 PRN PRN Reason: Pain, moderate (4-7) Lactobacillus Acidophilus (Bacid Acidophilus) 1 cap PO BID [facility] Last Admin: 03/31/18 18:21 Dose: 1 cap Methadone HCl (Methadone) 20 mg PO Q24H [facility]; Taper Stop: 04/04/18 09:59 Last Admin: 03/31/18 10:39 Dose: 20 mg Mirtazapine (Remeron) 15 mg PO [facility] Results - Vital Signs Recent Vital Signs: Last Vital Signs Temp 97.4 F L 03/31/18 18:02 Pulse 85 03/31/18 18:02 Resp 18 03/31/18 18:02 BP 143/78 03/31/18 18:02 Pulse Ox 100 03/31/18 18:02 - Labs Result Diagrams: 03/30/18 22:01 03/30/18 22:01 Labs: Laboratory Results - last 24 hr 03/30/18 03/30/18 03/30/18 22:01 22:01 22:12 WBC 2.1 L RBC 4.98 Hgb 14.5 Hct 43.1 MCV 86.4 D MCH 29.2 MCHC 33.7 RDW 13.2 Plt Count 235 MPV 7.1 L Neut % (Auto) 21.2 L Lymph % (Auto) 48.0 H [place] % (Auto) 23.0 H Eos % (Auto) 6.9 H Baso % (Auto) 0.9 Neut # (Auto) 0.4 L Lymph # (Auto) 1.0 [place] # (Auto) 0.5 Eos # (Auto) 0.1 Baso # (Auto) 0.0 Neutrophils % (Manual) 19 L Band Neutrophils % 1 Lymphocytes % (Manual) 58 H Monocytes % (Manual) 19 H Eosinophils % (Manual) 3 Platelet Estimate Normal Microcytosis (manual) Slight Sodium 138 Potassium 4.0 Chloride 102 Carbon Dioxide 26 Anion Gap 14 BUN 10 Creatinine 0.9 Est GFR ( Amer) > 60 Est GFR (Non-Af Amer) > 60 Random Glucose 90 D Calcium 8.7 Phosphorus 3.6 Magnesium 2.0 Total Bilirubin 0.5 AST 16 L D ALT 11 L D Alkaline Phosphatase 96 Total Protein 8.2 Albumin 4.5 Globulin 3.7 Albumin/Globulin Ratio 1.2 Urine Color Yellow Urine Clarity Clear Urine pH 6.0 Ur Specific [place] 1.019 Urine Protein Negative Urine Glucose (UA) Normal Urine Ketones Negative Urine Blood Negative Urine Nitrate Negative Urine Bilirubin Negative Urine Urobilinogen 4.0 Ur Leukocyte Esterase Neg Urine WBC (Auto) < 1 Urine RBC (Auto) 1 Urine Opiates Screen Urine Methadone Screen Ur Barbiturates Screen Ur Phencyclidine Scrn Ur Amphetamines Screen U Benzodiazepines Scrn U Oth Cocaine Metabols U Cannabinoids Screen Alcohol, Quantitative 22 H 03/30/18 22:12 WBC RBC Hgb Hct MCV MCH MCHC RDW Plt Count MPV Neut % (Auto) Lymph % (Auto) [place] % (Auto) Eos % (Auto) Baso % (Auto) Neut # (Auto) Lymph # (Auto) [place] # (Auto) Eos # (Auto) Baso # (Auto) Neutrophils % (Manual) Band Neutrophils % Lymphocytes % (Manual) Monocytes % (Manual) Eosinophils % (Manual) Platelet Estimate Microcytosis (manual) Sodium Potassium Chloride Carbon Dioxide Anion Gap BUN Creatinine Est GFR ( Amer) Est GFR (Non-Af Amer) Random Glucose Calcium Phosphorus Magnesium Total Bilirubin AST ALT Alkaline Phosphatase Total Protein Albumin Globulin Albumin/Globulin Ratio Urine Color Urine Clarity Urine pH Ur Specific [place] Urine Protein Urine Glucose (UA) Urine Ketones Urine Blood Urine Nitrate Urine Bilirubin Urine Urobilinogen Ur Leukocyte Esterase Urine WBC (Auto) Urine RBC (Auto) Urine Opiates Screen Positive H Urine Methadone Screen Negative Ur Barbiturates Screen Negative Ur Phencyclidine Scrn Negative Ur Amphetamines Screen Negative U Benzodiazepines Scrn Negative U Oth Cocaine Metabols Positive H U Cannabinoids Screen Negative Alcohol, Quantitative Attending/Attestation - Attestation I have personally seen and examined this patient.: Yes I have fully participated in the care of the patient.: Yes I have reviewed all pertinent clinical information: Yes Notes (Text): 03/31/18 19:34 Patient was seen and examined with resident Dr. Qing Delgado History, Physical, Exam, Assessment and Plan were gone over with Dr. Qing Delgado. Evan Funez. [facility] 03/31/18 19:35
--- NOTE | 2018-03-31 12:11 | CP.PCM.CON ---
History of Present Illness - History of Present Illness History of Present Illness: Podiatry Consult Note - Dr. Salmeron 47 y/o male with PMHx of asthma and cocaine abuse was seen at bedside this morning in psychiatric unit after request for podiatry consultation of right leg ulcer. Patient is known to Dr. Salmeron's service and has a history of leg swelling on both sides. States he developed an open wound to the right ankle approximately 3 months ago. Says it is very painful to touch. Denies seeking any treatment for the wound. Denies F/C/N/V/CP/SOB Past Patient History - Infectious Disease Hx of Infectious Diseases: None - Past Medical History & Family History Past Medical History?: Yes - Past Social History Smoking Status: Light Smoker < 10 Cigarettes Daily - CARDIAC Hx Hypertension: No - PULMONARY Hx Asthma: Yes - NEUROLOGICAL Hx Seizures: No - HEENT Hx HEENT Problems: No - RENAL Hx Chronic Kidney Disease: No - ENDOCRINE/METABOLIC Hx Endocrine Disorders: No - HEMATOLOGICAL/ONCOLOGICAL Hx Human Immunodeficiency Virus (HIV): No - INTEGUMENTARY Hx Dermatological Problems: Yes - MUSCULOSKELETAL/RHEUMATOLOGICAL Hx Musculoskeletal Disorders: Yes Hx Falls: Yes - GASTROINTESTINAL Hx Gastrointestinal Disorders: No - GENITOURINARY/GYNECOLOGICAL Hx Sexually Transmitted Disorders: No - PSYCHIATRIC Hx Anxiety: Yes Hx Depression: Yes Hx Substance Use: Yes - SURGICAL HISTORY Hx Surgeries: No - ANESTHESIA Hx Anesthesia: No Hx Anesthesia Reactions: No Meds Allergies/Adverse Reactions: Allergies Allergy/AdvReac Type Severity Reaction Status Date / Time No Known Allergies Allergy Verified 03/30/18 21:44 - Medications Medications: Current Medications Clonidine HCl (Catapres) 0.1 mg PO Q6 PRN Doxycycline Hyclate (Doryx) 100 mg PO Q12H [facility]; Protocol Hydroxyzine HCl (Atarax) 25 mg PO Q6 PRN Ibuprofen (Motrin Tab) 600 mg PO Q6 PRN Lactobacillus Acidophilus (Bacid Acidophilus) 1 cap PO BID [facility] Methadone HCl (Methadone) 20 mg PO Q24H [facility]; Taper Stop: 04/04/18 09:59 Last Admin: 03/31/18 10:39 Dose: 20 mg Mirtazapine (Remeron) 15 mg PO HS [facility] Physical Exam - Constitutional Appears: Well, Non-toxic, No Acute Distress - Extremities Exam Additional comments: Lower extremity focused exam: Vasc: DP/PT pulses palpable 2/4 B/L. Temperature gradient warm to cool B/L. CFT < 3 sec to all digits x10. Moderate non-pitting edema noted from tibial tuberosity to digits B/L Derm: open ulceration noted to medial lower right leg just proximal to medial malleolus with hyperpigmentation and black discoloration noted in patches throughout wound base. Entirety of ulceration measures approximately 6cm x 5cm x 0.1cm. No active drainage or purulence, no malodor, no fluctuance, no signs of abscess formation. Ortho: moderate-severe tenderness on palpation of ulceration site Neuro: protective sensation grossly intact - Neurological Exam Neurological exam: Alert, Oriented x3 - Psychiatric Exam Psychiatric exam: Normal Affect, Normal Mood Results - Vital Signs Recent Vital Signs: Last Vital Signs Temp 97.7 F 03/31/18 09:30 Pulse 67 03/31/18 09:30 Resp 20 03/31/18 09:30 BP 122/82 03/31/18 09:30 Pulse Ox 100 03/31/18 09:30 - Labs Result Diagrams: 03/30/18 22:01 03/30/18 22:01 Labs: Laboratory Results - last 24 hr 03/30/18 03/30/18 03/30/18 22:01 22:01 22:12 WBC 2.1 L RBC 4.98 Hgb 14.5 Hct 43.1 MCV 86.4 D MCH 29.2 MCHC 33.7 RDW 13.2 Plt Count 235 MPV 7.1 L Neut % (Auto) 21.2 L Lymph % (Auto) 48.0 H [place] % (Auto) 23.0 H Eos % (Auto) 6.9 H Baso % (Auto) 0.9 Neut # (Auto) 0.4 L Lymph # (Auto) 1.0 [place] # (Auto) 0.5 Eos # (Auto) 0.1 Baso # (Auto) 0.0 Neutrophils % (Manual) 19 L Band Neutrophils % 1 Lymphocytes % (Manual) 58 H Monocytes % (Manual) 19 H Eosinophils % (Manual) 3 Platelet Estimate Normal Microcytosis (manual) Slight Sodium 138 Potassium 4.0 Chloride 102 Carbon Dioxide 26 Anion Gap 14 BUN 10 Creatinine 0.9 Est GFR ( Amer) > 60 Est GFR (Non-Af Amer) > 60 Random Glucose 90 D Calcium 8.7 Phosphorus 3.6 Magnesium 2.0 Total Bilirubin 0.5 AST 16 L D ALT 11 L D Alkaline Phosphatase 96 Total Protein 8.2 Albumin 4.5 Globulin 3.7 Albumin/Globulin Ratio 1.2 Urine Color Yellow Urine Clarity Clear Urine pH 6.0 Ur Specific [place] 1.019 Urine Protein Negative Urine Glucose (UA) Normal Urine Ketones Negative Urine Blood Negative Urine Nitrate Negative Urine Bilirubin Negative Urine Urobilinogen 4.0 Ur Leukocyte Esterase Neg Urine WBC (Auto) < 1 Urine RBC (Auto) 1 Urine Opiates Screen Urine Methadone Screen Ur Barbiturates Screen Ur Phencyclidine Scrn Ur Amphetamines Screen U Benzodiazepines Scrn U Oth Cocaine Metabols U Cannabinoids Screen Alcohol, Quantitative 22 H 03/30/18 22:12 WBC RBC Hgb Hct MCV MCH MCHC RDW Plt Count MPV Neut % (Auto) Lymph % (Auto) [place] % (Auto) Eos % (Auto) Baso % (Auto) Neut # (Auto) Lymph # (Auto) [place] # (Auto) Eos # (Auto) Baso # (Auto) Neutrophils % (Manual) Band Neutrophils % Lymphocytes % (Manual) Monocytes % (Manual) Eosinophils % (Manual) Platelet Estimate Microcytosis (manual) Sodium Potassium Chloride Carbon Dioxide Anion Gap BUN Creatinine Est GFR ( Amer) Est GFR (Non-Af Amer) Random Glucose Calcium Phosphorus Magnesium Total Bilirubin AST ALT Alkaline Phosphatase Total Protein Albumin Globulin Albumin/Globulin Ratio Urine Color Urine Clarity Urine pH Ur Specific [place] Urine Protein Urine Glucose (UA) Urine Ketones Urine Blood Urine Nitrate Urine Bilirubin Urine Urobilinogen Ur Leukocyte Esterase Urine WBC (Auto) Urine RBC (Auto) Urine Opiates Screen Positive H Urine Methadone Screen Negative Ur Barbiturates Screen Negative Ur Phencyclidine Scrn Negative Ur Amphetamines Screen Negative U Benzodiazepines Scrn Negative U Oth Cocaine Metabols Positive H U Cannabinoids Screen Negative Alcohol, Quantitative Assessment & Plan - Assessment and Plan (Free Text) Assessment: 47 y/o male with right leg ulceration likely secondary to venous stasis Plan Patient seen and evaluated in psychiatric unit Discussed plan with Dr. Salmeron Wound cleaned with saline and dressed with Silvasorb, DSD and AMINTA bandage Dressing to be changed Q2-3 days Stable from podiatry standpoint - can f/u with Dr. Salmeron as outpatient in his office or at [facility] Will continue to monitor patient
--- NOTE | 2018-03-31 13:44 | PCM.PSYCH ---
Initial Psychiatric Evaluation - Initial Psychiatric Evaluation Type of Admission: Voluntary Legal Status: Capacity Chief Complaint (in patient's own words): "I just need detox" History of Present Illness and Precipitating Events: He is seen, chart reviewed, case discussed. He is known from another admission where he had AMAed. 47 year old -[place] male, who is single, unemployed, and currently homeless, presents to the hospital for heroin detox. Pt reports that he "needs to stop using and get clean". Pt has a hx of detox at [facility], with his last stay in August 2017. Pt states he had relapsed not too long after being discharged from detox. Pt has used heroin for the past 4 years, using about 1 bundle per day or more, with his last use being yesterday. Pt started using crack at 16 years old, using about 6 bottles per day, with his last use being yesterday. Pt admits to smoking a pack of cigarettes per day since he was 15 years old. Pt has a history of inpatient psychiatric hospitalization in 2004 for severe depression. Pt has never been to rehab. Pt currently complains of heroin withdrawal symptoms including lack of sleep, body aches, generalized weakness, yawning, and tearing. Pt scores a >12 on the COWS scale for opiate withdrawal. Pt appears tired and anxious. Pt also has a right-lower leg wound (Medicine was consulted). He had been ignoring that a long time. Pt denies suicidal or homicidal ideations, visual or auditory hallucinations, or paranoia at this time. Psych Hx: Major depression, again he was non-compliant with treatment and follow up. Fam Psych Hx: father was an alcoholic PMH: asthma, disc herniation, hx of cellulitis Meds: denies Allergies: denies Current Medications: Active Medications Generic Name Dose Route Start Last Admin Trade Name Freq PRN Reason Stop Dose Admin Clonidine HCl 0.1 mg 03/31/18 06:24 Catapres PO Q6 PRN Doxycycline Hyclate 100 mg 03/31/18 20:00 Doryx PO Q12H BENIGNO Protocol Hydroxyzine HCl 25 mg 03/31/18 06:22 Atarax PO Q6 PRN Ibuprofen 600 mg 03/31/18 06:20 Motrin Tab PO Q6 PRN Lactobacillus Acidophilus 1 cap 03/31/18 18:00 Bacid Acidophilus PO BID BENIGNO Methadone HCl 20 mg 03/31/18 10:00 03/31/18 10:39 Methadone PO 04/04/18 09:59 20 mg Q24H BENIGNO Administration Taper Mirtazapine 15 mg 03/31/18 22:00 Remeron PO HS BENIGNO Past Psychiatric History - Past Psychiatric History Previous Treatment History: None Pertinent Medical Hx (Current Medical&Sleep Prob, Allergies): Allergies Allergy/AdvReac Type Severity Reaction Status Date / Time No Known Allergies Allergy Verified 03/30/18 21:44 Albuterol Sulfate [Ventolin Hfa] 2 puff IH PRN PRN 08/25/17 Alprazolam [Xanax] 2 mg PO DAILY 03/30/18 Review of Systems - Psychiatric Psychiatric: Abnormal Sleep Pattern, Anhedonia, Anxiety, Change in Appetite, Depression, Difficulty Concentrating, Irritability. absent: Hallucinations, Homicidal Ideation, Paranoia, Suicidal Ideation Mental Status Examination - Personal Presentation Personal Presentation: Looks older than stated age (unkempt) - Affect Affect: Constricted - Motor Activity Motor Activity: Calm - Reliability in Providing Information Reliability in Providing Information: Fair - Speech Speech: Other (loud) - Mood Mood: Depressed, Anxious, Other (irate) - Formal Thought Process Formal Thought Process: No Impairment - Cognitive Functions Orientation: Person, Place, Situation, Time Sensorium: Alert Attention/Concentration: Easily distracted Abstract Thinking: [place] Estimate of Intelligence: Average Judgement: Imparied, as evidence by: Poor judgement (refusing after care) Memory: Recent impaired, as evidence by: Inability to recall events of the day, Remote impaired as evidenced by: Inability to recall sig life events - Risk Risk: Withdrawal, Diminished functioning - Strength & Assets Inventory Strength & Assets Inventory: Cooperative (somewhat) - Limitations Limitations: Living alone DSM 5 DX - DSM 5 DSM 5 Diagnosis: Opioid withdrawal Opioid use d/o - severe Cocaine use d/o - severe Depressive d/o - unspecified - Recommended/Plan of Treatment Treatment Recommendations and Plan of Treatment: Taper with Methadone Remeron for depression Gabapentin for augmentation Doryx for right-lower leg infection/wound As needed medications Clonidine, Atarax, and Motrin All risks, benefits and alternatives of the meds discussed, and the pt agreed and understood. Attend groups and activities Supportive therapy and psychoeducation [place] for abstinence CBT for relapse prevention Encourage MAT Refer to rehab or IOP, and self-help groups Teach healthy lifestyle methods, i.e. diet, exercise, meditation Smoking cessation with [place] Nicotine patch if needed 33 min Projected ELOS: 5 days - Smoking Cessation Smoking Cessation Initiated: Yes
--- NOTE | 2018-03-31 15:00 | RAD ---
Date of service: 03/31/2018 PROCEDURE: Radiographs of the right tibia and fibula. HISTORY: RLL ulcer, r/o bone involvement COMPARISON: None available TECHNIQUE: Frontal and lateral views obtained. FINDINGS: BONES: No fracture or destructive lesion. JOINT SPACES: Unremarkable. OTHER FINDINGS: None. IMPRESSION: Unremarkable radiographs of the right tibia and fibula.
[2018-03-31] MEDS: Lactobacillus Acidophilus 500 MU Cap PO SCH (18:21)
[2018-04-01] MEDS: Lactobacillus Acidophilus 500 MU Cap PO SCH ×2 (09:57→17:07)
[2018-04-01] MEDS: SILVASORB ANTIMICROBIAL WOUND GEL TOP SCH ×2 (11:01→11:04)
--- NOTE | 2018-04-01 11:41 | PCM.PYCHPN ---
Psychiatric Progress Note - Psychiatric Progress Note Patient seen today, length of contact: 15 min Patient Chief Complaint: I am still withdrawing Problems Identified/Issues Discussed: Patient was seen and evaluated, chart reviewed and discussed with staff. Patient reports withdrawal symptoms including anxiety, headaches and sweating. He denies any feelings of hopelessness or helplessness. He denies any suicidal ideation or any homicidal ideation. He denies any auditory hallucinations or any paranoia. He is taking medication but denies any side effects. Supportive therapy was given Medication Change: Yes Medical Record Reviewed: Yes Mental Status Examination - Cognitive Function Orientation: Person, Place, Situation, Time Memory: Intact Attention: WNL Concentration: Poor Association: WNL Fund of Knowledge: Poor - Mood Mood: Depressed, Anxious, Other (irate) - Affect Affect: Constricted - Speech Speech: Soft - Formal Thought Process Formal Thought Process: No Impairment - Suicidal Ideation Suicidal Ideation: No - Homicidal Ideation Homicidal Ideation: No Goal/Treatment Plan - Goal/Treatment Plan Need for Continued Stay: Severe depression anxiety Progress Toward Problem(s) and Goals/Treatment Plan: Opioid withdrawal Opioid use d/o - severe Cocaine use d/o - severe Depressive d/o - unspecified Taper with Methadone Remeron for depression Gabapentin for augmentation Doryx for right-lower leg infection/wound As needed medications Clonidine, Atarax, and Motrin All risks, benefits and alternatives of the meds discussed, and the pt agreed and understood. Attend groups and activities Supportive therapy and psychoeducation [place] for abstinence CBT for relapse prevention Encourage MAT Refer to rehab or IOP, and self-help groups Teach healthy lifestyle methods, i.e. diet, exercise, meditation Smoking cessation with IN Nicotine patch if needed
--- NOTE | 2018-04-01 12:21 | CP.PCM.PN ---
Subjective - Date & Time of Evaluation Date of Evaluation: 04/01/18 Time of Evaluation: 12:21 - Subjective Subjective: 47 y/o male seen at bedside this morning with attending Dr. Salmeron for painful right lower leg ulceration. He states the AMINTA bandage helps with the leg swelling but is painful pressing on the ulcer. Admits to intermittent pain in the leg wound. Denies tingling, numbness or burning. Denies F/C/N/V/CP/SOB Objective - Vital Signs/Intake and Output Vital Signs (last 24 hours): Temp Pulse Resp BP Pulse Ox 98.5 F 85 18 133/77 98 04/01/18 10:00 04/01/18 10:00 04/01/18 10:00 04/01/18 10:00 04/01/18 10:00 - Medications Medications: Current Medications Clonidine HCl (Catapres) 0.1 mg PO Q6 PRN PRN Reason: WITHDRAWAL SYMPTOMS Doxycycline Hyclate (Doryx) 100 mg PO Q12H [facility]; Protocol Last Admin: 04/01/18 08:49 Dose: 100 mg Hydroxyzine HCl (Atarax) 25 mg PO Q6 PRN PRN Reason: Anxiety Ibuprofen (Motrin Tab) 600 mg PO Q6 PRN PRN Reason: Pain, moderate (4-7) Last Admin: 03/31/18 20:21 Dose: 600 mg Lactobacillus Acidophilus (Bacid Acidophilus) 1 cap PO BID BENIGNO Last Admin: 04/01/18 09:57 Dose: 1 cap Methadone HCl (Methadone) 15 mg PO Q24H [facility]IGNO; Taper Stop: 04/04/18 09:59 Last Admin: 04/01/18 09:57 Dose: 15 mg Mirtazapine (Remeron) 15 mg PO HS BENIGNO Last Admin: 03/31/18 21:16 Dose: 15 mg - Labs Labs: 03/30/18 22:01 03/30/18 22:01 - Constitutional Appears: Well, Non-toxic, No Acute Distress - Extremities Exam Additional comments: Lower extremity focused exam: Vasc: DP/PT pulses palpable 2/4 B/L. Temperature gradient warm to cool B/L. CFT < 3 sec to all digits x10. Moderate non-pitting edema noted from tibial tuberosity to digits B/L Derm: open ulceration noted to medial lower right leg just proximal to medial malleolus with hyperpigmentation of dany wound. Black eschar noted to wound roof now lysed off wound base and on previous dressing, reveal a granular wound bed. Entirety of ulceration measures approximately 6cm x 5cm x 0.1cm. No active drainage or purulence, no malodor, no fluctuance, no signs of abscess formation. Ortho: moderate-severe tenderness on palpation of ulceration site Neuro: protective sensation grossly intact - Neurological Exam Neurological Exam: Alert, Awake, Oriented x3 - Psychiatric Exam Psychiatric exam: Normal Affect, Normal Mood Assessment and Plan - Assessment and Plan (Free Text) Assessment: 47 y/o male with right leg ulceration likely secondary to venous stasis Plan Patient seen and evaluated in psychiatric unitwith Dr. Salmeron Wound cleaned with saline and dressed with Silvasorb, xeroform, DSD Dressing to be changed Q3 days Stable from podiatry standpoint - can f/u with Dr. Salmeron as outpatient in his office or at [facility] Will continue to monitor patient
--- NOTE | 2018-04-01 15:14 | CP.PCM.PN ---
Subjective - Date & Time of Evaluation Date of Evaluation: 04/01/18 Time of Evaluation: 13:00 - Subjective Subjective: PGY-1 Medicine Progress Note for Dr. Funez's service S/E at bedside. Offers no acute complaints. Reports pain control with motrin. Denies fevers, chills, chest pain, sob, n/v, constipation or diarrhea, and dys uria. Objective - Vital Signs/Intake and Output Vital Signs (last 24 hours): Temp Pulse Resp BP Pulse Ox 98.2 F 71 20 118/75 98 04/01/18 13:00 04/01/18 13:00 04/01/18 13:00 04/01/18 13:00 04/01/18 13:00 - Medications Medications: Current Medications Clonidine HCl (Catapres) 0.1 mg PO Q6 PRN PRN Reason: WITHDRAWAL SYMPTOMS Doxycycline Hyclate (Doryx) 100 mg PO Q12H [facility]; Protocol Last Admin: 04/01/18 08:49 Dose: 100 mg Hydroxyzine HCl (Atarax) 25 mg PO Q6 PRN PRN Reason: Anxiety Ibuprofen (Motrin Tab) 600 mg PO Q6 PRN PRN Reason: Pain, moderate (4-7) Last Admin: 04/01/18 12:59 Dose: 600 mg Lactobacillus Acidophilus (Bacid Acidophilus) 1 cap PO BID [facility] Last Admin: 04/01/18 09:57 Dose: 1 cap Methadone HCl (Methadone) 15 mg PO Q24H [facility]; Taper Stop: 04/04/18 09:59 Last Admin: 04/01/18 09:57 Dose: 15 mg Mirtazapine (Remeron) 15 mg PO HS [facility] Last Admin: 03/31/18 21:16 Dose: 15 mg - Labs Labs: 03/30/18 22:01 03/30/18 22:01 - Constitutional Appears: Non-toxic, No Acute Distress - Head Exam Head Exam: NORMAL INSPECTION, NORMOCEPHALIC - Eye Exam Eye Exam: EOMI, Normal appearance. absent: Nystagmus, Scleral icterus - ENT Exam ENT Exam: Mucous Membranes Moist - Respiratory Exam Respiratory Exam: Clear to Ausculation Bilateral, NORMAL BREATHING PATTERN. absent: Chest Wall Tenderness, Decreased Breath Sounds, Rales, Rhonchi, Wheezes - Cardiovascular Exam Cardiovascular Exam: REGULAR RHYTHM, +S1, +S2. absent: Tachycardia - GI/Abdominal Exam GI & Abdominal Exam: Soft, Normal Bowel Sounds. absent: Distended, Firm, Guarding, Rigid, Tenderness - Extremities Exam Additional comments: dressing placed above right ankle by podiatry no oozing, draining or pus noted Assessment and Plan - Assessment and Plan (Free Text) Assessment: Patient is a 47 year old male with a past medical history of asthma, chronic back pain, heroin abuse, cocaine abuse and venous insufficiency with ulcer was admitted to the detox unit on 03/30/18. Medicine was consulted for ulcer management. Podiatry was consulted who will be the main team taking care of ulcer management. RLE venous ulcer Podiatry consulted, Dr. Salmeron - help appreciated Wound care consulted- recs appreciated Wound cleaned with saline and dressed with Silvasorb, xeroform, DSD Dressing to be changed Q3 days Tib/Fib xray 03/31/18: Unremarkable Lactobacillus Acidophilus 1 cap PO BID (10am and 6pm) Silvasorb Antimicrobial 1 applic TOP daily Doxy 100mg po q12h Studies from recent admission at [facility] on 02/18/18: * Previous wound culture 02/18/18: Pseudomonas Aeruginosa and Beta Hemolytic Strep Group B * Previous doppler US 02/18/18: no DVT Heroin/Cocain Abuse Clonidine 0.1mg PO q6h prn Hydroxyzine HCl 25mg PO q6h prn Ibuprofen 600mg PO q6h prn Methadone 20mg PO q24h Mirtazapine 15mg PO HS Disposition: Please discharge patient with silvabsorb antimicrobial with nonadhesive dressing and bernardo bandage prior to discharge. Case discussed with Dr. Evan Funez PGY-1 Bernice Durán
[2018-04-02] MEDS: Lactobacillus Acidophilus 500 MU Cap PO SCH (10:06)
[2018-04-02] MEDS: SILVASORB ANTIMICROBIAL WOUND GEL TOP SCH (10:59)
[2018-04-02 11:22] VITALS: RESP 18
[2018-04-02 13:48] VITALS: BP 102/67; PULSE 71; TEMP 97.9; O2SAT 99
--- NOTE | 2018-04-02 16:17 | PCM.PYCHPN ---
Psychiatric Progress Note - Psychiatric Progress Note Patient seen today, length of contact: 15 min Patient Chief Complaint: I am feeling better. Problems Identified/Issues Discussed: Patient seen, chart reviewed, case discussed with the staff. Issues related to illness and treatment were discussed with the patient and staff. Reported compliant with treatment with no adverse effects. Tolerating treatment very well. Patient reported feeling much better with the treatment and had very few withdrawal symptoms. Mood reported as okay. Affect appropriate. Patient was awake, alert and oriented x3. , And cooperative. Patient had some concerns about wound on his right lower leg. Patient is under care for the wound by medicine and other consult department. Aftercare discussed with the patient. Patient just want to attend NA meetings after discharge from the hospital. We will also refer the patient to outpatient clinic, [facility] for wound care. Patient denied any delusions, no auditory or visual hallucinations, no suicidal ideations or homicidal ideations at the time of evaluation. Medical Problems: Asthma Diagnostic Results: Reviewed DSM 5 Symptoms Update: Some improvement with treatment Medication Change: No Medical Record Reviewed: Yes Consults ordered or reviewed: Reviewed Mental Status Examination - Cognitive Function Orientation: Person, Place, Situation, Time Memory: Intact Attention: WNL Concentration: WNL Association: [facility] Fund of Knowledge: [facility] Decription of patient's judgement and insights: Fair - Mood Mood: Anxious, Other (irate) - Affect Affect: Other (Appropriate) - Speech Speech: Soft - Formal Thought Process Formal Thought Process: No Impairment Psychotic Thoughts and Behaviors: None - Suicidal Ideation Suicidal Ideation: No - Homicidal Ideation Homicidal Ideation: No Goal/Treatment Plan - Goal/Treatment Plan Need for Continued Stay: Remain at risks for inpatient hospitalization, Discharge may exacerbated symptoms, Severe functional impairment Estimated Date of D/C: 04/03/18 - Smoking Cessation Smoking Cessation Initiated: No
== END 2018-04-02 16:31 | disposition left against medical advice (07) ==
LOC: C.ER 21:15 → C.7D 03-31 01:18 → C.ER 03-31 03:10
PROVIDERS: ADMIT Psychiatry & Neurology Psychiatry; ATTEND Psychiatry & Neurology Psychiatry
PROC: HZ52ZZZ Individual Psychotherapy for Substance Abuse Treatment, Cognitive-Behavioral (ICD-10-PCS; principal; 2018-03-31)
PROC: HZ59ZZZ Individual Psychotherapy for Substance Abuse Treatment, Supportive (ICD-10-PCS; 2018-03-31)
PROC: HZ56ZZZ Individual Psychotherapy for Substance Abuse Treatment, Psychoeducation (ICD-10-PCS; 2018-03-31)
PROC: HZ2ZZZZ Detoxification Services for Substance Abuse Treatment (ICD-10-PCS; 2018-03-31)
DX: F11.23 Opioid dependence with withdrawal (principal); F14.20 Cocaine dependence, uncomplicated; L97.919 Non-pressure chronic ulcer of unspecified part of right lower leg with unspecified severity; F17.210 Nicotine dependence, cigarettes, uncomplicated; F32.9 Major depressive disorder, single episode, unspecified; F41.9 Anxiety disorder, unspecified; I87.2 Venous insufficiency (chronic) (peripheral); M54.9 Dorsalgia, unspecified; G89.29 Other chronic pain; I87.8 Other specified disorders of veins; J45.909 Unspecified asthma, uncomplicated